=== PATIENT | female | born 1965 | race Caucasian/White ===

== ENCOUNTER 2020-02-11 11:58 | Outpatient (CLI) | payer OTHER, SELFPAY ==
--- NOTE | ~2020-02-11 | CT_ITS ---
EXAMINATION: CT abdomen pelvis wo con DATE: 02/11/2020 12:30 INDICATION: Right flank pain and hematuria. TECHNIQUE: Computed tomography (CT) of the abdomen and pelvis was performed without intravenous contr ast. Automated exposure control and iterative reconstruction technique were employed. The dose-length product was 621.72 mGy-cm. COMPARISON: None FINDINGS: Lung bases are clear. Heart size is normal. No pericardial or pleural effusion. Small sliding-type hi atal hernia. Liver, gallbladder, spleen, pancreas and bilateral adrenal glands are normal. There is a t least partially due to the right renal collecting system with separate ureters draining the upper a nd lower poles which appear to fuse somewhere along the mid to distal ureters with only a single dist al right ureter identified. Kidneys and ureters are otherwise normal with no urolithiasis, hydrourete ronephrosis or perinephric/ureteral stranding. No abnormal bowel wall thickening or obstruction. No i nflammatory stranding to suggest acute appendicitis surrounding a short appendix versus appendiceal s tump. Bladder, anteverted uterus and bilateral adnexa are unremarkable. There are few small phlebolit hs in the region of the cervix and paravaginal soft tissues. No free intraperitoneal gas or fluid. No pathologically enlarged abdominal or pelvic lymphadenopathy. Mild scattered degenerative skeletal ch anges in the spine and pelvis. IMPRESSION: 1. Partially duplicated right renal collecting system. Otherwise normal kidneys, ureters and bladder with no evident urolithiasis. 2. Small sliding-type hiatal hernia. Reviewed, dictated and finalized at location A. IMPRESSION: 1. Partially duplicated right renal collecting system. Otherwise normal kidneys , ureters and bladder with no evident urolithiasis. 2. Small sliding-type hiatal hernia.
== END 2020-02-11 11:59 | disposition home or self-care (01) ==
LOC: CHSIMG 12:02
PROVIDERS: PCP Internal Medicine; Visit Provider Internal Medicine
DX: R31.9 Hematuria, unspecified (principal)
CPT/HCPCS: 74176

== ENCOUNTER 2020-07-02 09:50 | Outpatient (CLI) | payer OTHER, SELFPAY ==
--- NOTE | ~2020-07-02 | US_ITS ---
EXAMINATION: US pelvic complete w TV DATE: 07/02/2020 10:30 INDICATION: Dyspareunia in female. Pelvic pain, right greater than left. TECHNIQUE: Multiple transabdominal and endovaginal sonographic images of the pelvis were obtained. COMPARISON: None. FINDINGS: The uterus measures 8.9 x 2.8 x 4.7 cm. The endometrial complex measures 5 mm in thickness. The righ t ovary is not visualized. No abnormal right adnexal masses or fluid collections. The left ovary katherine ures 2.1 x 1.6 x 2.2 cm. There is normal vascular flow in the ovaries. There is no free fluid in the pelvis. IMPRESSION: 1. Unremarkable pelvic ultrasound. Reviewed, dictated and finalized at location A.
== END 2020-07-02 09:51 ==
PROVIDERS: PCP Internal Medicine; Visit Provider Nurse Practitioner Obstetrics & Gynecology
DX: N94.10 Unspecified dyspareunia (principal)
CPT/HCPCS: 76830; 76856